=== PATIENT | male | born 1995 | race Caucasian/White ===

== ENCOUNTER 2018-11-11 13:45 | Emergency (ER) | payer BC ==
[~2018-11-11] VITALS: Ht 180.3 cm; Wt 79.4 kg
--- NOTE | 2018-11-12 00:53 | EKG ---
[facility] [address] [facility] [place], [place] [address] Signed Normal sinus rhythm Rightward axis Borderline ECG No previous ECGs available Confirmed by ANY COATS MD ([id number]) on 11/12/2018 12:53:27 AM Electronically Signed By: ANY COATS MD 11/12/18 0053 PATIENT NAME: ADRI DELCID Electrocardiogram DATE OF : [birth year] PHYSICIAN: ANY COATS MD REPORT #: [id number] REPORT IS CONFIDENTIAL AND NOT TO BE RELEASED WITHOUT AUTHORIZATION
== END 2018-11-11 16:04 | disposition home or self-care (01) ==
LOC: ED 13:45
DX: R00.2 Palpitations (principal)
CPT/HCPCS: 71045; 80053; 84484; 85025; 93005; 93010; 99284-25